=== PATIENT | female | born 1975 | race Caucasian/White ===

== ENCOUNTER 2024-09-09 00:33 | Inpatient (IN) | payer OTHER, SELFPAY ==
[2024-09-09 00:15] VITALS: BP 132/81; PULSE 63; RESP 16; TEMP 36.4; O2SAT 95
[2024-09-09 02:38] VITALS: BMI 34.1
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
[2024-09-09 07:37] VITALS: BP 133/64; PULSE 66; RESP 16; TEMP 36.4; O2SAT 92
[2024-09-09 08:47] LABS: Albumin Level 3.9 g/dL (3.5-5.0); Anion Gap 14 (12-20); Aspartate Amino Transferase 59 U/L (5-31); Bilirubin Total 0.3 mg/dL (0.0-1.0); Blood Urea Nitrogen 22 mg/dL (9-16); Calcium 9.3 mg/dL (8.4-10.2); Carbon Dioxide 27 mmol/L (22-29); Chloride 102 mmol/L (96-108); Creatinine Clr Calc Pharmacy 103.4; Estimated Glomerular Filt Rate > 60; Glucose Random 105 mg/dL (60-115); Potassium 4.5 mmol/L (3.3-5.1); Sodium 138 mmol/L (135-145); Total Protein 7.4 g/dL (6.5-8.0)
[2024-09-09 08:53] LABS: Alanine Aminotransferase 47 U/L (0-31); Alkaline Phosphatase 82 U/L (39-117)
--- NOTE | 2024-09-09 09:20 | HO.PSYADMNOT ---
[facility] Date of Service: 09/09/24 Chief Complaint: Adjustment Disorder with depressed mood Sources of Information: patient interviewed, chart reviewed and crisis/core team assessment reviewed HPI Subjective Notes: Neal Warning and Conditional Voluntary Narrative: Patient is a 49-year-old female with history of bipolar disorder, PTSD, cocaine use disorder, alcohol use disorder and opiate use disorder, who self presented to ER due to suicidal ideation secondary to hip pain. Per crisis report, patient reports hip pain for the past week that is worsening and states she does not want to live anymore because of this. She reports suicidal ideation with plan to overdose or jump off a bridge. She reports 1 previous suicide attempt via overdose in 2006 after her mother . Patient reports difficulty falling asleep due to the pain. Does not having psychiatric providers at this time. She receives her medications through her PCP. Patient reports using cocaine a few times a week; drinking 1 pint of alcohol a day. Last Sublocade injection was 08/17/2024. Patient has a orthopedics follow-up appointment on 09/14/2004. Patient ambulates with walker; severe osteoarthritis of left hip. During admission assessment, patient tearful due to pain in hip. Patient reports feeling depressed ; patient stated, I want to kill myself because of the pain in my hip . Patient declined to complete full admission assessment due to wanting to go lay down in bed. Patient denies HI/VH/AH. Past Psychiatric History: Patient reports history of multiple inpatient psychiatric hospitalizations. History of suicide attempt via overdose in 2006 after her mother , which required life support. Medical Evaluation Reviewed: Yes [facility] Medical History (Updated 09/09/24 @ 16:55 by Martina Villa NP) Bipolar disorder GERD (gastroesophageal reflux disease) COPD (chronic obstructive pulmonary disease) Chronic left hip pain Osteoarthritis Peripheral neuropathy Polysubstance use disorder HTN (hypertension) Family History: Unknown Social History: Homeless. Disability. Substance History: Patient reports using alcohol, cocaine, opiates. Trauma History: Yes Diagnostics Vital Signs (24Hr): Vital Signs - 24 hr 09/09/24 00:15 09/09/24 07:37 Temperature 97.6 F 97.6 F Pulse Rate 63 66 Respiratory Rate 16 16 Blood Pressure 132/81 133/64 Pulse Oximetry 95 92 Oxygen Delivery Method Room Air Room Air BMI result Body Mass Index 34.1 Labs 09/09/24 08:17 Labs: Laboratory Results - last 48 hr 09/09/24 08:17 Sodium 138 Potassium 4.5 Chloride 102 Carbon Dioxide 27 Anion Gap 14 BUN 22 H Creatinine 0.73 Estim Creat Clear Calc 103.4 Estimated GFR > 60 Random Glucose 105 Calcium 9.3 Total Bilirubin 0.3 AST 59 H ALT 47 H Alkaline Phosphatase 82 Total Protein 7.4 Albumin 3.9 Meds/Allergies Meds Home Medications ?Medication ?Instructions ?Recorded ?Confirmed ?Type amlodipine 10 mg tablet 10 mg PO DAILY 09/09/24 09/09/24 History buprenorphine 100 mg/0.5 mL mg subcut 09/09/24 History solution,exten.rel.subcutaneous syringe (Sublocade) cyclobenzaprine 10 mg tablet 10 mg PO TID 09/09/24 09/09/24 History fluoxetine 20 mg capsule 20 mg PO DAILY 09/09/24 09/09/24 History gabapentin 300 mg capsule 900 mg PO TID 09/09/24 09/09/24 History hydrochlorothiazide 12.5 mg tablet 12.5 mg PO DAILY 09/09/24 09/09/24 History ibuprofen 600 mg tablet 600 mg PO Q6H PRN Pain (Scale 09/09/24 09/09/24 History Score 4-6) lorazepam 0.5 mg tablet 0.5 mg PO DAILY PRN Anxiety 09/09/24 09/09/24 History olanzapine 5 mg tablet 5 mg PO BEDTIME 09/09/24 09/09/24 History oxcarbazepine 300 mg tablet 300 mg PO BID 09/09/24 09/09/24 History oxycodone 5 mg tablet 5 mg PO TID PRN Pain, Severe 09/09/24 09/09/24 History pantoprazole 40 mg tablet,delayed 40 mg PO DAILY 09/09/24 09/09/24 History release pantoprazole 40 mg tablet,delayed 40 mg PO DAILY 09/09/24 09/09/24 History release tiotropium bromide 18 mcg capsule 1 cap inhalation DAILY 09/09/24 09/09/24 History with inhalation device (Spiriva with HandiHaler) trazodone 100 mg tablet 100 mg PO BEDTIME 09/09/24 09/09/24 History venlafaxine 75 mg capsule,extended 75 mg PO DAILY 09/09/24 09/09/24 History release 24 hr Allergies Allergies Allergy/AdvReac Type Severity Reaction Status Date / Time No Known Allergies Allergy Verified 09/09/24 03:06 Mental Status Exam Mental Status Exam Patient Appearance: Appropriate Patient Orientation: Person, Place, Time and Situation Level of Consciousness: Awake and Alert Patient Behavior: Anxious, Good Eye Contact and Crying Mood Description: Anxious Affect Description: Constricted Ability to Follow Directions: Good Speech Pattern: Clear Hallucinations: None Thought Process: Intact Thought Content: positive for Intact Assessment & Plan Assessment & Plan (1) Bipolar disorder: Status: Acute Code(s): F31.9 - Bipolar disorder, unspecified (2) PTSD (post-traumatic stress disorder): Status: Acute Code(s): F43.10 - Post-traumatic stress disorder, unspecified (3) Cocaine use disorder: Status: Acute Code(s): F14.10 - Cocaine abuse, uncomplicated (4) Opioid use disorder: Status: Acute Code(s): F11.90 - Opioid use, unspecified, uncomplicated (5) Alcohol use disorder: Status: Acute Code(s): F10.90 - Alcohol use, unspecified, uncomplicated (6) Chronic left hip pain: Status: Acute Code(s): M25.552 - Pain in left hip; G89.29 - Other chronic pain Plan Patient is a 49-year-old female with history of bipolar disorder, PTSD, cocaine use disorder, alcohol use disorder and opiate use disorder, who self presented to ER due to suicidal ideation secondary to hip pain. Plan: CV 5 minute safety checks Continue home medications Encourage groups Referral to outpatient psychiatric providers Consult to addiction medicine Build rapport Discharge planning Patient educated on: diagnosis and medication risk/benefits Reason for continued inpatient stay Substantial Risk for: harm to self and med/psych decompensation Statement Statement: I have reviewed the history and physical and performed a pertinent examination on my patient. No changes have occurred unless specified. If the History and Physical was not performed prior to admission, the Hospitalist's service will be consulted for completing the admission physical. Time Spent With Patient Time: Total time managing care of this patient today _30___ minutes.
[2024-09-09 12:21] VITALS: BP 162/82; PULSE 73; RESP 18; TEMP 36.9; O2SAT 95
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
[2024-09-09] MEDS: amLODIPine Besylate 10 MG TABLET PO (12:49)
[2024-09-09] MEDS: Gabapentin 300 MG CAPSULE 900 MG PO ×3 (12:50→20:03)
[2024-09-09] MEDS: Cyclobenzaprine HCl 10 MG TABLET PO ×3 (12:50→20:04)
[2024-09-09] MEDS: hydroCHLOROthiazide 12.5 MG TABLET PO (12:50)
[2024-09-09] MEDS: Venlafaxine HCl ER 75 MG CAP.ER.24H PO (12:50)
[2024-09-09] MEDS: OXcarbazepine 300 MG TABLET PO ×2 (12:50→20:05)
[2024-09-09] MEDS: oxyCODONE HCl Immed Release 5 MG TABLET PO ×2 (12:51→20:05)
[2024-09-09] MEDS: LORazepam 0.5 MG TABLET PO ×2 (13:13→21:59)
[2024-09-09 19:53] VITALS: BP 122/76; PULSE 100; RESP 16; TEMP 36.8; O2SAT 94
[2024-09-09] MEDS: OLANZapine 5 MG TABLET PO (20:06)
[2024-09-09] MEDS: traZODone HCL 100 MG TABLET PO (20:07)
[2024-09-09] MEDS: cloNIDine HCL 0.1 MG TABLET PO (20:07)
[2024-09-10] MEDS: Omeprazole 20 MG CAPSULE.DR PO (06:38)
[2024-09-10 07:50] VITALS: BP 127/69; PULSE 72; RESP 14; TEMP 36.6; O2SAT 94
[2024-09-10] MEDS: oxyCODONE HCl Immed Release 5 MG TABLET PO ×3 (08:32→22:38)
[2024-09-10] MEDS: hydroCHLOROthiazide 12.5 MG TABLET PO (08:32)
[2024-09-10] MEDS: amLODIPine Besylate 10 MG TABLET PO (08:33)
[2024-09-10] MEDS: OXcarbazepine 300 MG TABLET PO ×2 (08:34→21:07)
[2024-09-10] MEDS: Venlafaxine HCl ER 75 MG CAP.ER.24H PO (08:34)
[2024-09-10] MEDS: Cyclobenzaprine HCl 10 MG TABLET PO ×3 (08:34→21:06)
[2024-09-10] MEDS: Gabapentin 300 MG CAPSULE 900 MG PO ×3 (08:34→21:07)
[2024-09-10] MEDS: LORazepam 0.5 MG TABLET PO ×2 (08:35→20:43)
[2024-09-10] MEDS: Lidocaine 4 % Patch ADH..PATCH 1 PATCH TRANSDERMA (08:36)
[2024-09-10] MEDS: Albuterol Sulfate 90 MCG 8 GM INHALER 1 PUFF INHALE (08:44)
[2024-09-10] MEDS: cloNIDine HCL 0.1 MG TABLET PO (08:44)
--- NOTE | 2024-09-10 10:17 | HO.PSYCHPN ---
Subjective Subjective Date of Service: 09/10/24 Reason For Visit: Adjustment Disorder with depressed mood Interim History: overall patient reports significant hip pain, which is chronic in nature. Hopeful for surgery soon and making an upcoming consult appointment. Does have a rash on her right hip. Sleep is poor in the context of pain. Feeling down, irritable and anxious. Denies SI. No HI or psychosis. We discussed medications and clonidine dose will be increased. Will also order hydrocortisone cream and senna. Medication Compliance: Yes Side effects from medications: No Attending Groups: Yes Review of Systems Acute medical concerns: No Review of Systems Review of Systems Chronic left hip pain. Hip rash noted and no evidence of cellulitis Mental Status Exam Mental Status Exam Patient Appearance: Appropriate Patient Orientation: Person, Place, Time and Situation Level of Consciousness: Awake and Alert Patient Behavior: Anxious, Good Eye Contact and Crying Mood Description: Anxious Affect Description: Constricted Ability to Follow Directions: Good Speech Pattern: Clear Diagnostics Vital Signs (24Hr): Vital Signs - 24 hr 09/09/24 12:21 09/09/24 19:53 09/10/24 07:50 Temperature 98.5 F 98.2 F 97.9 F Pulse Rate 73 100 72 Respiratory Rate 18 16 14 Blood Pressure 162/82 H 122/76 127/69 Pulse Oximetry 95 94 94 Oxygen Delivery Method Room Air Room Air Room Air BMI result Body Mass Index 34.1 Labs 09/09/24 08:17 Labs: Laboratory Results - last 48 hr 09/09/24 08:17 Sodium 138 Potassium 4.5 Chloride 102 Carbon Dioxide 27 Anion Gap 14 BUN 22 H Creatinine 0.73 Estim Creat Clear Calc 103.4 Estimated GFR > 60 Random Glucose 105 Calcium 9.3 Total Bilirubin 0.3 AST 59 H ALT 47 H Alkaline Phosphatase 82 Total Protein 7.4 Albumin 3.9 Medications Medications Current Medications Acetaminophen (Acetaminophen 325 Mg Tablet) 650 mg PO Q6H PRN PRN Reason: Headache/Pain Mild Scale (1-3) Al Hydroxide/Mg Hydroxide (Magnesium Hydrox/Alum Hydrox 30 Ml Oral.Susp) 30 ml PO Q6H PRN PRN Reason: Heartburn/Nausea Albuterol Sulfate (Albuterol Sulfate 90 Mcg 8 Gm Inhaler) 1 puff INHALE RQ4H PRN PRN Reason: Shortness of Breath Last Admin: 09/10/24 08:44 Dose: 1 puff Amlodipine Besylate (Amlodipine Besylate 10 Mg Tablet) 10 mg PO DAILY REPLACED BY [facility]; Protocol Last Admin: 09/10/24 08:33 Dose: 10 mg Clonidine HCl (Clonidine Hcl 0.1 Mg Tablet) 0.1 mg PO BID PRN; Protocol PRN Reason: Anxiety Last Admin: 09/10/24 08:44 Dose: 0.1 mg Cyclobenzaprine HCl (Cyclobenzaprine Hcl 10 Mg Tablet) 10 mg PO TID REPLACED BY [facility] Last Admin: 09/10/24 08:34 Dose: 10 mg Gabapentin (Gabapentin 300 Mg Capsule) 900 mg PO TID REPLACED BY [facility] Last Admin: 09/10/24 08:34 Dose: 900 mg Hydrochlorothiazide (Hydrochlorothiazide 12.5 Mg Tablet) 12.5 mg PO DAILY REPLACED BY [facility]; Protocol Last Admin: 09/10/24 08:32 Dose: 12.5 mg Hydroxyzine HCl (Hydroxyzine Hcl 25 Mg Tablet) 25 mg PO Q6H PRN PRN Reason: Anxiety Ibuprofen (Ibuprofen 600 Mg Tablet) 600 mg PO Q6H PRN PRN Reason: Pain (Scale Score 4-6) Lidocaine (Lidocaine 4 % Patch Adh..Patch) 1 patch TRANSDERMA DAILY REPLACED BY [facility]; Protocol Last Admin: 09/10/24 08:36 Dose: 1 patch Lorazepam (Lorazepam 0.5 Mg Tablet) 0.5 mg PO BID PRN PRN Reason: Anxiety Last Admin: 09/10/24 08:35 Dose: 0.5 mg Magnesium Hydroxide (Milk Of Magnesia 30 Ml Oral.Susp) 30 ml PO DAILY PRN PRN Reason: Constipation Nicotine (Nicotine 21 Mg Patch.Td24) 21 mg TRANSDERMA DAILY PRN PRN Reason: nicotine cravings Nicotine Polacrilex (Nicotine Polacrilex 2 Mg Gum) 2 mg BUCCAL Q2H PRN PRN Reason: Nicotine Cravings Olanzapine (Olanzapine 5 Mg Tablet) 5 mg PO BEDTIME REPLACED BY [facility] Last Admin: 09/09/24 20:06 Dose: 5 mg Omeprazole (Omeprazole 20 Mg Capsule.Dr) 20 mg PO DAILY@0630 REPLACED BY [facility] Last Admin: 09/10/24 06:38 Dose: 20 mg Oxcarbazepine (Oxcarbazepine 300 Mg Tablet) 300 mg PO BID REPLACED BY [facility] Last Admin: 09/10/24 08:34 Dose: 300 mg Oxycodone HCl (Oxycodone Hcl Immed Release 5 Mg Tablet) 5 mg PO TID PRN PRN Reason: Pain, Severe Last Admin: 09/10/24 08:32 Dose: 5 mg Tiotropium [place] (Tiotropium [place] 2.5 Mcg 1 Puff/2.5 Mcg Mist.Inhal) 2 puff INHALE RDAILY REPLACED BY [facility] Last Admin: 09/10/24 08:36 Dose: Not Given Trazodone HCl (Trazodone Hcl 100 Mg Tablet) 100 mg PO BEDTIME REPLACED BY [facility] Last Admin: 09/09/24 20:07 Dose: 100 mg Venlafaxine HCl (Venlafaxine Hcl Er 75 Mg Cap.Er.24h) 75 mg PO DAILY REPLACED BY [facility] Last Admin: 09/10/24 08:34 Dose: 75 mg Allergies Allergies Allergy/AdvReac Type Severity Reaction Status Date / Time No Known Allergies Allergy Verified 09/09/24 03:06 Assessment & Plan Assessment & Plan (1) Bipolar disorder: Status: Acute Code(s): F31.9 - Bipolar disorder, unspecified (2) PTSD (post-traumatic stress disorder): Status: Acute Code(s): F43.10 - Post-traumatic stress disorder, unspecified (3) Cocaine use disorder: Status: Acute Code(s): F14.10 - Cocaine abuse, uncomplicated (4) Opioid use disorder: Status: Acute Code(s): F11.90 - Opioid use, unspecified, uncomplicated (5) Alcohol use disorder: Status: Acute Code(s): F10.90 - Alcohol use, unspecified, uncomplicated (6) Chronic left hip pain: Status: Acute Code(s): M25.552 - Pain in left hip; G89.29 - Other chronic pain Plan Patient is a 49-year-old female with history of bipolar disorder, PTSD, cocaine use disorder, alcohol use disorder and opiate use disorder, who self presented to ER due to suicidal ideation secondary to hip pain. Plan: CV 5 minute safety checks Continue home medications Encourage groups Referral to outpatient psychiatric providers Consult to addiction medicine Build rapport Discharge planning 09/10/2024: Increase clonidine to 0.2 mg twice daily, and hydrocortisone cream for hip rash and also senna for constipation. Reason for continued inpatient stay Substantial Risk for: inability to function Time Spent With Patient Time: Total time managing care of this patient today ____ minutes.
[2024-09-10] MEDS: Ibuprofen 600 MG TABLET PO ×2 (10:52→22:37)
[2024-09-10] MEDS: hydrOXYzine HCL 25 MG TABLET PO ×2 (11:53→22:37)
[2024-09-10 12:34] VITALS: BP 153/92; PULSE 110; TEMP 36.3; O2SAT 95
[2024-09-10] MEDS: cloNIDine HCL 0.2 MG TABLET PO ×2 (12:37→22:37)
[2024-09-10 20:00] VITALS: BP 127/69; PULSE 72; RESP 16; TEMP 36.6; O2SAT 94
[2024-09-10] MEDS: Sennosides 8.6 MG TABLET 17.2 MG PO (21:06)
[2024-09-10] MEDS: OLANZapine 5 MG TABLET PO (21:07)
[2024-09-10] MEDS: traZODone HCL 100 MG TABLET PO (21:08)
[2024-09-10] MEDS: Hydrocortisone 1 % Cream 28.35 GM TUBE 1 APPL TOPICAL (22:37)
[2024-09-11] MEDS: Omeprazole 20 MG CAPSULE.DR PO (06:32)
[2024-09-11 08:30] VITALS: BP 131/74; PULSE 65; RESP 16; TEMP 36.3; O2SAT 94
[2024-09-11] MEDS: hydroCHLOROthiazide 12.5 MG TABLET PO (09:19)
[2024-09-11] MEDS: oxyCODONE HCl Immed Release 5 MG TABLET PO ×3 (09:20→21:09)
[2024-09-11] MEDS: Gabapentin 300 MG CAPSULE 900 MG PO ×3 (09:20→20:18)
[2024-09-11] MEDS: Venlafaxine HCl ER 75 MG CAP.ER.24H PO (09:20)
[2024-09-11] MEDS: amLODIPine Besylate 10 MG TABLET PO (09:21)
[2024-09-11] MEDS: OXcarbazepine 300 MG TABLET PO ×2 (09:21→20:20)
[2024-09-11] MEDS: LORazepam 0.5 MG TABLET PO ×2 (09:21→20:31)
[2024-09-11] MEDS: Cyclobenzaprine HCl 10 MG TABLET PO ×3 (09:21→20:18)
[2024-09-11] MEDS: Lidocaine 4 % Patch ADH..PATCH 1 PATCH TRANSDERMA (09:23)
--- NOTE | 2024-09-11 10:26 | P.PNPSI_ITS ---
Subjective Subjective Date of Service: 09/11/24 Reason For Visit: Adjustment Disorder with depressed mood Medical Problems Affecting Mental Status: No Interim History: Overall patient reports nausea and feels it is similar to withdrawals. Feeling down, irritable and anxious. Denies SI. No HI or psychosis. Discussed increasing clonidine frequency and feels this could be helpful. Rash less itchy with cream. Sleep is poor in the context of pain. Medication Compliance: Yes Side effects from medications: No Attending Groups: Intermittent Review of Systems Acute medical concerns: No Review of Systems Review of Systems nothing acute Mental Status Exam Mental Status Exam Patient Appearance: Appropriate Patient Orientation: Person, Place, Time and Situation Level of Consciousness: Awake and Alert Patient Behavior: Anxious and Good Eye Contact Mood Description: Anxious Affect Description: Constricted Ability to Follow Directions: Good Speech Pattern: Clear Diagnostics Vital Signs (24Hr): Vital Signs - 24 hr 09/10/24 12:34 09/10/24 20:00 09/11/24 08:30 Temperature 97.4 F 97.9 F 97.4 F Pulse Rate 110 H 72 65 Respiratory Rate 16 16 Blood Pressure 153/92 H 127/69 131/74 Pulse Oximetry 95 94 94 Oxygen Delivery Method Room Air Room Air Room Air BMI result Body Mass Index 34.1 Labs 09/09/24 08:17 Medications Medications Current Medications Acetaminophen (Acetaminophen 325 Mg Tablet) 650 mg PO Q6H PRN PRN Reason: Headache/Pain Mild Scale (1-3) Al Hydroxide/Mg Hydroxide (Magnesium Hydrox/Alum Hydrox 30 Ml Oral.Susp) 30 ml PO Q6H PRN PRN Reason: Heartburn/Nausea Albuterol Sulfate (Albuterol Sulfate 90 Mcg 8 Gm Inhaler) 1 puff INHALE RQ4H PRN PRN Reason: Shortness of Breath Last Admin: 09/10/24 08:44 Dose: 1 puff Amlodipine Besylate (Amlodipine Besylate 10 Mg Tablet) 10 mg PO DAILY [facility]; Protocol Last Admin: 09/11/24 09:21 Dose: 10 mg Clonidine HCl (Clonidine Hcl 0.2 Mg Tablet) 0.2 mg PO BID PRN; Protocol PRN Reason: Anxiety Last Admin: 09/10/24 22:37 Dose: 0.2 mg Cyclobenzaprine HCl (Cyclobenzaprine Hcl 10 Mg Tablet) 10 mg PO TID [facility] Last Admin: 09/11/24 09:21 Dose: 10 mg Gabapentin (Gabapentin 300 Mg Capsule) 900 mg PO TID [facility] Last Admin: 09/11/24 09:20 Dose: 900 mg Hydrochlorothiazide (Hydrochlorothiazide 12.5 Mg Tablet) 12.5 mg PO DAILY [facility]; Protocol Last Admin: 09/11/24 09:19 Dose: 12.5 mg Hydrocortisone (Hydrocortisone 1 % Cream 28.35 Gm Tube) 1 appl TOPICAL BID [facility]; Protocol Last Admin: 09/11/24 09:22 Dose: Not Given Hydroxyzine HCl (Hydroxyzine Hcl 25 Mg Tablet) 25 mg PO Q6H PRN PRN Reason: Anxiety Last Admin: 09/10/24 22:37 Dose: 25 mg Ibuprofen (Ibuprofen 600 Mg Tablet) 600 mg PO Q6H PRN PRN Reason: Pain (Scale Score 4-6) Last Admin: 09/10/24 22:37 Dose: 600 mg Lidocaine (Lidocaine 4 % Patch Adh..Patch) 1 patch TRANSDERMA DAILY [facility]; Protocol Last Admin: 09/11/24 09:23 Dose: 1 patch Lorazepam (Lorazepam 0.5 Mg Tablet) 0.5 mg PO BID PRN PRN Reason: Anxiety Last Admin: 09/11/24 09:21 Dose: 0.5 mg Magnesium Hydroxide (Milk Of Magnesia 30 Ml Oral.Susp) 30 ml PO DAILY PRN PRN Reason: Constipation Nicotine (Nicotine 21 Mg Patch.Td24) 21 mg TRANSDERMA DAILY PRN PRN Reason: nicotine cravings Nicotine Polacrilex (Nicotine Polacrilex 2 Mg Gum) 2 mg BUCCAL Q2H PRN PRN Reason: Nicotine Cravings Olanzapine (Olanzapine 5 Mg Tablet) 5 mg PO BEDTIME [facility] Last Admin: 09/10/24 21:07 Dose: 5 mg Omeprazole (Omeprazole 20 Mg Capsule.Dr) 20 mg PO DAILY@0630 [facility] Last Admin: 09/11/24 06:32 Dose: 20 mg Ondansetron HCl (Ondansetron Odt 8 Mg Tab.Rapdis) 8 mg TRANSLINGU Q8H PRN PRN Reason: Nausea and Vomiting Oxcarbazepine (Oxcarbazepine 300 Mg Tablet) 300 mg PO BID [facility] Last Admin: 09/11/24 09:21 Dose: 300 mg Oxycodone HCl (Oxycodone Hcl Immed Release 5 Mg Tablet) 5 mg PO TID PRN PRN Reason: Pain, Severe Last Admin: 09/11/24 09:20 Dose: 5 mg Senna (Sennosides 8.6 Mg Tablet) 17.2 mg PO BEDTIME [facility] Last Admin: 09/10/24 21:06 Dose: 17.2 mg Tiotropium [place] (Tiotropium [place] 2.5 Mcg 1 Puff/2.5 Mcg Mist.Inhal) 2 puff INHALE RDAILY [facility] Last Admin: 09/11/24 09:22 Dose: Not Given Trazodone HCl (Trazodone Hcl 100 Mg Tablet) 100 mg PO BEDTIME [facility] Last Admin: 09/10/24 21:08 Dose: 100 mg Venlafaxine HCl (Venlafaxine Hcl Er 75 Mg Cap.Er.24h) 75 mg PO DAILY [facility] Last Admin: 09/11/24 09:20 Dose: 75 mg Allergies Allergies Allergy/AdvReac Type Severity Reaction Status Date / Time No Known Allergies Allergy Verified 09/09/24 03:06 Assessment & Plan Assessment & Plan (1) Bipolar disorder: Status: Acute Code(s): F31.9 - Bipolar disorder, unspecified (2) PTSD (post-traumatic stress disorder): Status: Acute Code(s): F43.10 - Post-traumatic stress disorder, unspecified (3) Cocaine use disorder: Status: Acute Code(s): F14.10 - Cocaine abuse, uncomplicated (4) Opioid use disorder: Status: Acute Code(s): F11.90 - Opioid use, unspecified, uncomplicated (5) Alcohol use disorder: Status: Acute Code(s): F10.90 - Alcohol use, unspecified, uncomplicated (6) Chronic left hip pain: Status: Acute Code(s): M25.552 - Pain in left hip; G89.29 - Other chronic pain Plan Patient is a 49-year-old female with history of bipolar disorder, PTSD, cocaine use disorder, alcohol use disorder and opiate use disorder, who self presented to ER due to suicidal ideation secondary to hip pain. Plan: CV 5 minute safety checks Continue home medications Encourage groups Referral to outpatient psychiatric providers Consult to addiction medicine Build rapport Discharge planning 09/10/2024: Increase clonidine to 0.2 mg twice daily, and hydrocortisone cream for hip rash and also senna for constipation. 09/11: adjust clonidine to three times daily Reason for continued inpatient stay Substantial Risk for: harm to self Time Spent With Patient Time: Total time managing care of this patient today ____ minutes.
[2024-09-11 11:10] VITALS: BP 182/89
[2024-09-11] MEDS: cloNIDine HCL 0.2 MG TABLET PO ×3 (11:10→20:20)
[2024-09-11] MEDS: Ibuprofen 600 MG TABLET PO ×2 (11:10→20:19)
[2024-09-11 11:15] VITALS: BP 182/89; PULSE 110; O2SAT 97
--- NOTE | 2024-09-11 12:52 | MHC.RECOVRN ---
T/W attempted to meet with pt in 323-2 for [facility] consult/AUDIT C. Pt unable to focus and participate in the meeting due to focus on hip pain/surgery. She requested meeting on another day. Report to ACS nurse
[2024-09-11 15:41] VITALS: BP 106/74; PULSE 78; RESP 16
[2024-09-11 20:14] VITALS: BP 128/77; PULSE 87; RESP 18; TEMP 36.4; O2SAT 96
[2024-09-11] MEDS: Sennosides 8.6 MG TABLET 17.2 MG PO (20:18)
[2024-09-11] MEDS: traZODone HCL 100 MG TABLET PO (20:19)
[2024-09-11] MEDS: OLANZapine 5 MG TABLET PO (20:20)
[2024-09-11] MEDS: Hydrocortisone 1 % Cream 28.35 GM TUBE 1 APPL TOPICAL (21:09)
[2024-09-12] MEDS: Omeprazole 20 MG CAPSULE.DR PO (06:37)
[2024-09-12 08:00] VITALS: BP 115/57; PULSE 66; RESP 14; TEMP 36.4; O2SAT 95
[2024-09-12] MEDS: Acetaminophen 325 MG TABLET 650 MG PO ×2 (08:52→15:15)
[2024-09-12] MEDS: Gabapentin 300 MG CAPSULE 900 MG PO ×3 (08:52→20:04)
[2024-09-12] MEDS: LORazepam 0.5 MG TABLET PO ×2 (08:53→19:06)
[2024-09-12] MEDS: hydroCHLOROthiazide 12.5 MG TABLET PO (08:53)
[2024-09-12] MEDS: amLODIPine Besylate 10 MG TABLET PO (08:53)
[2024-09-12] MEDS: OXcarbazepine 300 MG TABLET PO ×2 (08:53→20:05)
[2024-09-12] MEDS: Cyclobenzaprine HCl 10 MG TABLET PO ×3 (08:54→20:05)
[2024-09-12] MEDS: hydrOXYzine HCL 25 MG TABLET PO ×2 (08:54→19:06)
[2024-09-12] MEDS: Venlafaxine HCl ER 75 MG CAP.ER.24H PO (08:54)
[2024-09-12] MEDS: oxyCODONE HCl Immed Release 5 MG TABLET PO ×3 (09:13→19:05)
--- NOTE | 2024-09-12 09:23 | P.PNPSI_ITS ---
Subjective Subjective Date of Service: 09/12/24 Reason For Visit: Adjustment Disorder with depressed mood Subjective Notes: Conditional Voluntary Interim History: Active on unit, social with peers. attending groups. future oriented. focused on discharge. Patient reports feeling good and ready to go tomorrow to see my doctors . Patient reports she is hopeful about getting surgery for her hip. Pt reports she does not need scripts sent to her pharmacy since she plans on seeing her outpatient providers on 09/13/24 and 09/14/24. denies SI/HI/VH/AH. Medication Compliance: Yes Side effects from medications: No Attending Groups: Yes Review of Systems Constitutional: Reports as per HPI Eyes: Reports as per HPI Reports as per HPI Cardiovascular: Reports as per HPI Respiratory: Reports as per HPI Gastrointestinal: Reports as per HPI Genitourinary: Reports as per HPI Musculoskeletal: Reports as per HPI Skin/Breast: Reports as per HPI Reports as per HPI Psychiatric: Reports as per HPI Endocrine: Reports as per HPI Hematologic/Lymphatic: Reports as per HPI Allergic/Immunologic: Reports as per HPI Mental Status Exam Mental Status Exam Narrative: Pt is alert and oriented; behavior is cooperative and calm; dressed in casual attire; mood is described as good ; eye contact appropriate; Speech is normal rate, volume and not pressured; thought process is organized and goal directed; Thought content is on tx; denies SI/HI/VH/AH. Diagnostics Vital Signs (24Hr): Vital Signs - 24 hr 09/11/24 11:10 09/11/24 11:15 09/11/24 15:41 Temperature Pulse Rate 110 H 78 Respiratory Rate 16 Blood Pressure 182/89 H 182/89 H 106/74 Pulse Oximetry 97 Oxygen Delivery Method Room Air 09/11/24 20:14 09/12/24 08:00 Temperature 97.5 F 97.5 F Pulse Rate 87 66 Respiratory Rate 18 14 Blood Pressure 128/77 115/57 L Pulse Oximetry 96 95 Oxygen Delivery Method Room Air Room Air BMI result Body Mass Index 34.1 Labs 09/09/24 08:17 Medications Medications Current Medications Acetaminophen (Acetaminophen 325 Mg Tablet) 650 mg PO Q6H PRN PRN Reason: Headache/Pain Mild Scale (1-3) Last Admin: 09/12/24 08:52 Dose: 650 mg Al Hydroxide/Mg Hydroxide (Magnesium Hydrox/Alum Hydrox 30 Ml Oral.Susp) 30 ml PO Q6H PRN PRN Reason: Heartburn/Nausea Albuterol Sulfate (Albuterol Sulfate 90 Mcg 8 Gm Inhaler) 1 puff INHALE RQ4H PRN PRN Reason: Shortness of Breath Last Admin: 09/10/24 08:44 Dose: 1 puff Amlodipine Besylate (Amlodipine Besylate 10 Mg Tablet) 10 mg PO DAILY [facility]; Protocol Last Admin: 09/12/24 08:53 Dose: 10 mg Clonidine HCl (Clonidine Hcl 0.2 Mg Tablet) 0.2 mg PO TID [facility]; Protocol Last Admin: 09/11/24 20:20 Dose: 0.2 mg Cyclobenzaprine HCl (Cyclobenzaprine Hcl 10 Mg Tablet) 10 mg PO TID [facility] Last Admin: 09/12/24 08:54 Dose: 10 mg Gabapentin (Gabapentin 300 Mg Capsule) 900 mg PO TID [facility] Last Admin: 09/12/24 08:52 Dose: 900 mg Hydrochlorothiazide (Hydrochlorothiazide 12.5 Mg Tablet) 12.5 mg PO DAILY [facility]; Protocol Last Admin: 09/12/24 08:53 Dose: 12.5 mg Hydrocortisone (Hydrocortisone 1 % Cream 28.35 Gm Tube) 1 appl TOPICAL BID [facility]; Protocol Last Admin: 09/12/24 09:18 Dose: Not Given Hydroxyzine HCl (Hydroxyzine Hcl 25 Mg Tablet) 25 mg PO Q6H PRN PRN Reason: Anxiety Last Admin: 09/12/24 08:54 Dose: 25 mg Ibuprofen (Ibuprofen 600 Mg Tablet) 600 mg PO Q6H PRN PRN Reason: Pain (Scale Score 4-6) Last Admin: 09/11/24 20:19 Dose: 600 mg Lidocaine (Lidocaine 4 % Patch Adh..Patch) 1 patch TRANSDERMA DAILY [facility]; Protocol Last Admin: 09/12/24 09:18 Dose: Not Given Lorazepam (Lorazepam 0.5 Mg Tablet) 0.5 mg PO BID PRN PRN Reason: Anxiety Last Admin: 09/12/24 08:53 Dose: 0.5 mg Magnesium Hydroxide (Milk Of Magnesia 30 Ml Oral.Susp) 30 ml PO DAILY PRN PRN Reason: Constipation Nicotine (Nicotine 21 Mg Patch.Td24) 21 mg TRANSDERMA DAILY PRN PRN Reason: nicotine cravings Nicotine Polacrilex (Nicotine Polacrilex 2 Mg Gum) 2 mg BUCCAL Q2H PRN PRN Reason: Nicotine Cravings Olanzapine (Olanzapine 5 Mg Tablet) 5 mg PO BEDTIME [facility] Last Admin: 09/11/24 20:20 Dose: 5 mg Omeprazole (Omeprazole 20 Mg Capsule.Dr) 20 mg PO DAILY@0630 [facility] Last Admin: 09/12/24 06:37 Dose: 20 mg Ondansetron HCl (Ondansetron Odt 8 Mg Tab.Rapdis) 8 mg TRANSLINGU Q8H PRN PRN Reason: Nausea and Vomiting Oxcarbazepine (Oxcarbazepine 300 Mg Tablet) 300 mg PO BID [facility] Last Admin: 09/12/24 08:53 Dose: 300 mg Oxycodone HCl (Oxycodone Hcl Immed Release 5 Mg Tablet) 5 mg PO TID PRN PRN Reason: Pain, Severe Last Admin: 09/12/24 09:13 Dose: 5 mg Senna (Sennosides 8.6 Mg Tablet) 17.2 mg PO BEDTIME [facility] Last Admin: 09/11/24 20:18 Dose: 17.2 mg Tiotropium [place] (Tiotropium [place] 2.5 Mcg 1 Puff/2.5 Mcg Mist.Inhal) 2 puff INHALE RDAILY [facility] Last Admin: 09/12/24 09:16 Dose: Not Given Trazodone HCl (Trazodone Hcl 100 Mg Tablet) 100 mg PO BEDTIME [facility] Last Admin: 09/11/24 20:19 Dose: 100 mg Venlafaxine HCl (Venlafaxine Hcl Er 75 Mg Cap.Er.24h) 75 mg PO DAILY [facility] Last Admin: 09/12/24 08:54 Dose: 75 mg Allergies Allergies Allergy/AdvReac Type Severity Reaction Status Date / Time No Known Allergies Allergy Verified 09/09/24 03:06 Assessment & Plan Assessment & Plan (1) Bipolar disorder: Status: Acute Code(s): F31.9 - Bipolar disorder, unspecified (2) PTSD (post-traumatic stress disorder): Status: Acute Code(s): F43.10 - Post-traumatic stress disorder, unspecified (3) Cocaine use disorder: Status: Acute Code(s): F14.10 - Cocaine abuse, uncomplicated (4) Opioid use disorder: Status: Acute Code(s): F11.90 - Opioid use, unspecified, uncomplicated (5) Alcohol use disorder: Status: Acute Code(s): F10.90 - Alcohol use, unspecified, uncomplicated (6) Chronic left hip pain: Status: Acute Code(s): M25.552 - Pain in left hip; G89.29 - Other chronic pain Plan Patient is a 49-year-old female with history of bipolar disorder, PTSD, cocaine use disorder, alcohol use disorder and opiate use disorder, who self presented to ER due to suicidal ideation secondary to hip pain. Plan: CV 5 minute safety checks Continue home medications Encourage groups Referral to outpatient psychiatric providers Consult to addiction medicine Build rapport Discharge planning 09/10/2024: Increase clonidine to 0.2 mg twice daily, and hydrocortisone cream for hip rash and also senna for constipation. 09/11: adjust clonidine to three times daily 09/12: Active on unit, social with peers. attending groups. future oriented. focused on discharge. Patient reports feeling good and ready to go tomorrow to see my doctors . Patient reports she is hopeful about getting surgery for her hip. Pt reports she does not need scripts sent to her pharmacy since she plans on seeing her outpatient providers on 09/13/24 and 09/14/24. denies SI/HI/VH/AH. Patient educated on: diagnosis and medication risk/benefits Reason for continued inpatient stay Substantial Risk for: stable for discharge Time Spent With Patient Time: Total time managing care of this patient today _20___ minutes.
--- NOTE | 2024-09-12 09:23 | HO.PSYEVENT2 ---
Event Note Date of Service: 09/12/24 Time Spent With Patient Time: Total time managing care of this patient today ____ minutes.
[2024-09-12 10:20] VITALS: BP 138/87; PULSE 80
[2024-09-12] MEDS: cloNIDine HCL 0.2 MG TABLET PO ×3 (10:24→20:05)
[2024-09-12] MEDS: Ibuprofen 600 MG TABLET PO ×2 (10:56→21:39)
[2024-09-12 15:09] VITALS: BP 136/83
[2024-09-12 20:00] VITALS: BP 144/77; PULSE 85; RESP 16; TEMP 37.1; O2SAT 97
[2024-09-12] MEDS: Sennosides 8.6 MG TABLET 17.2 MG PO (20:04)
[2024-09-12] MEDS: OLANZapine 5 MG TABLET PO (20:05)
[2024-09-12] MEDS: traZODone HCL 100 MG TABLET PO (20:05)
[2024-09-13] MEDS: oxyCODONE HCl Immed Release 5 MG TABLET PO ×2 (01:28→08:35)
[2024-09-13] MEDS: Ibuprofen 600 MG TABLET PO (06:59)
[2024-09-13] MEDS: Omeprazole 20 MG CAPSULE.DR PO (07:00)
[2024-09-13 07:56] VITALS: BP 126/63; PULSE 75; RESP 16; TEMP 36.4; O2SAT 96
[2024-09-13] MEDS: Venlafaxine HCl ER 75 MG CAP.ER.24H PO (08:36)
[2024-09-13] MEDS: LORazepam 0.5 MG TABLET PO (08:36)
[2024-09-13] MEDS: Gabapentin 300 MG CAPSULE 900 MG PO (08:36)
[2024-09-13] MEDS: OXcarbazepine 300 MG TABLET PO (08:36)
[2024-09-13] MEDS: cloNIDine HCL 0.2 MG TABLET PO (08:36)
[2024-09-13] MEDS: hydroCHLOROthiazide 12.5 MG TABLET PO (08:36)
[2024-09-13] MEDS: amLODIPine Besylate 10 MG TABLET PO (08:37)
[2024-09-13] MEDS: Cyclobenzaprine HCl 10 MG TABLET PO (08:37)
[2024-09-13] MEDS: Naloxone HCl Nasal TAKE HOME 4 MG SPRAY 8 MG NOSTRILALT (08:39)
[2024-09-13] MEDS: Tiotropium Bromide 2.5 mcg 1 PUFF/2.5 MCG MIST.INHAL 2 PUFF INHALE (08:40)
[2024-09-13] MEDS: Ondansetron ODT 8 MG TAB.RAPDIS TRANSLINGU (08:48)
--- NOTE | 2024-09-13 09:04 | PM.PSYDC ---
DS: Providers Provider Date of Service: 09/13/24 Date of admission: 09/09/24 00:33 Date of discharge: 09/13/24 Primary care physician: Unknown Physician Admitting clinician: Martina Villa Attending physician on admission: Jorge Simons Consults: 09/09/24 00:15 Consult to Hospitalist Routine Comment: Consulting Provider: [facility] Hospitalists Reason For Exam: medical H&P 09/09/24 05:49 Addiction Medicine Routine Consulting Provider: Addiction Covering Reason for consultation: chronic etoh and substance use Attending physician on discharge: Jorge Simons Discharging clinician: Martina Villa DS: Diagnosis Discharge Diagnosis (1) Bipolar disorder: Status: Acute (2) PTSD (post-traumatic stress disorder): Status: Acute (3) Cocaine use disorder: Status: Acute (4) Opioid use disorder: Status: Acute (5) Alcohol use disorder: Status: Acute (6) Chronic left hip pain: Status: Acute DS: Medications Discharge Medications Home Medications: Home Medications ?Medication ?Instructions ?Recorded ?Confirmed amlodipine 10 mg tablet 10 mg PO DAILY 09/09/24 09/09/24 buprenorphine 100 mg/0.5 mL mg subcut 09/09/24 solution,exten.rel.subcutaneous syringe (Sublocade) cyclobenzaprine 10 mg tablet 10 mg PO TID 09/09/24 09/09/24 gabapentin 300 mg capsule 900 mg PO TID 09/09/24 09/09/24 hydrochlorothiazide 12.5 mg tablet 12.5 mg PO DAILY 09/09/24 09/09/24 ibuprofen 600 mg tablet 600 mg PO Q6H PRN Pain (Scale 09/09/24 09/09/24 Score 4-6) lorazepam 0.5 mg tablet 0.5 mg PO DAILY PRN Anxiety 09/09/24 09/09/24 olanzapine 5 mg tablet 5 mg PO BEDTIME 09/09/24 09/09/24 oxcarbazepine 300 mg tablet 300 mg PO BID 09/09/24 09/09/24 oxycodone 5 mg tablet 5 mg PO TID PRN Pain, Severe 09/09/24 09/09/24 pantoprazole 40 mg tablet,delayed 40 mg PO DAILY 09/09/24 09/09/24 release tiotropium bromide 18 mcg capsule 1 cap inhalation DAILY 09/09/24 09/09/24 with inhalation device (Spiriva with HandiHaler) trazodone 100 mg tablet 100 mg PO BEDTIME 09/09/24 09/09/24 venlafaxine 75 mg capsule,extended 75 mg PO DAILY 09/09/24 09/09/24 release 24 hr Previous Rx's ?Medication ?Instructions ?Recorded albuterol sulfate 90 mcg/actuation 1 puff inhalation RQ4H PRN 09/12/24 aerosol inhaler (Ventolin HFA) Shortness Of Breath #0 grams Mental Status Exam Mental Status Exam Narrative: Pt is alert and oriented; behavior is cooperative and calm; dressed in casual attire; mood is described as good ; eye contact appropriate; Speech is normal rate, volume and not pressured; thought process is organized and goal directed; Thought content is on tx; denies SI/HI/VH/AH. Data Data Completed and Pending Completed studies during hospitalization [Text1]: 09/09/24 08:17 Sodium 138 Potassium 4.5 Chloride 102 Carbon Dioxide 27 Anion Gap 14 BUN 22 H Creatinine 0.73 Estim Creat Clear Calc 103.4 Estimated GFR > 60 Random Glucose 105 Calcium 9.3 Total Bilirubin 0.3 AST 59 H ALT 47 H Alkaline Phosphatase 82 Total Protein 7.4 Albumin 3.9 DS: Summary Hospital Course Hospital Course: Patient is a 49-year-old female with history of bipolar disorder, PTSD, cocaine use disorder, alcohol use disorder and opiate use disorder, who self presented to ER due to suicidal ideation secondary to hip pain. Per crisis report, patient reports hip pain for the past week that is worsening and states she does not want to live anymore because of this. She reports suicidal ideation with plan to overdose or jump off a bridge. She reports 1 previous suicide attempt via overdose in 2006 after her mother . Patient reports difficulty falling asleep due to the pain. Does not having psychiatric providers at this time. She receives her medications through her PCP. Patient reports using cocaine a few times a week; drinking 1 pint of alcohol a day. Last Sublocade injection was 08/17/2024. Patient has a orthopedics follow-up appointment on 09/14/2004. Patient ambulates with walker; severe osteoarthritis of left hip. During admission assessment, patient tearful due to pain in hip. Patient reports feeling depressed ; patient stated, I want to kill myself because of the pain in my hip . Patient declined to complete full admission assessment due to wanting to go lay down in bed. Patient denies HI/VH/AH. Plan: CV 5 minute safety checks Continue home medications Encourage groups Referral to outpatient psychiatric providers Consult to addiction medicine Build rapport Discharge planning Increase clonidine to 0.2 mg twice daily, and hydrocortisone cream for hip rash and also senna for constipation. adjust clonidine to three times daily Active on unit, social with peers. attending groups. future oriented. focused on discharge. Patient reports feeling good and ready to go tomorrow to see my doctors . Patient reports she is hopeful about getting surgery for her hip. Pt reports she does not need scripts sent to her pharmacy since she plans on seeing her outpatient providers on 09/13/24 and 09/14/24. denies SI/HI/VH/AH. Patient reports feeling good and looking forward to seeing her provider . denies SI/HI/VH/AH. Pt plans on following up with outpatient providers. Time spent discussing smoking cessation with patient: 3 to 10 minutes Status at Discharge Cognitive/behavioral status at discharge: Patient was interviewed prior to discharge and found to be fully oriented and without SI or HI. Patient has insight and demonstrates good judgment in terms of wanting to pursue treatment. Patient has a safety plan that includes presenting to the closest ER or calling 911 if feeling unsafe. Functional status at discharge: independent ambulation Overall status at discharge: patient is back to baseline Time Spent with Patient Time attestation: Total time managing care of this patient today _20___ minutes. Time spent: Less than 30 minutes Discharge Plan Discharge Anticipated Discharge Date/Time: 09/13/24 10:00 Patient Disposition: Group Home Discharge Diagnosis: Bipolar d/o, PTSD, cocaine use d/o, opioid use d/o, alcohol use d/o Referrals: Dr. Jaramillo [Other] - 09/14/24 (PT1 set up through [facility]. ) Karolina Franco [Other] - 09/13/24 (Tiny states that she will see Dr. Fracno today when she arrives back at the [facility]. ) Discharge Medications: New albuterol sulfate [Ventolin HFA] 90 mcg/actuation Hfa Aerosol Inhaler 1 puff inhalation RQ4H PRN (Reason: Shortness Of Breath) Qty: 0 0RF Continued cyclobenzaprine 10 mg tablet 10 mg PO TID amlodipine 10 mg tablet 10 mg PO DAILY gabapentin 300 mg capsule 900 mg PO TID hydrochlorothiazide 12.5 mg tablet 12.5 mg PO DAILY venlafaxine 75 mg capsule,extended release 24hr 75 mg PO DAILY olanzapine 5 mg tablet 5 mg PO BEDTIME oxcarbazepine 300 mg tablet 300 mg PO BID lorazepam 0.5 mg tablet 0.5 mg PO DAILY PRN (Reason: Anxiety) trazodone 100 mg tablet 100 mg PO BEDTIME pantoprazole 40 mg tablet,delayed release (DR/EC) 40 mg PO DAILY ibuprofen 600 mg tablet 600 mg PO Q6H PRN (Reason: Pain (Scale Score 4-6)) oxycodone 5 mg tablet 5 mg PO TID PRN (Reason: Pain, Severe) tiotropium bromide [Spiriva with HandiHaler] 18 mcg capsule, w/inhalation device 1 cap inhalation DAILY Sublocade 100 mg/0.5 mL solution, extended rel syringe subcut Discontinued fluoxetine 20 mg capsule 20 mg PO DAILY pantoprazole 40 mg tablet,delayed release (DR/EC) 40 mg PO DAILY Discharge Orders: Discharge Order (Routine); Ordered 09/13/24 Ordered By: Martina Villa Diet: Regular diet Activity on Discharge: As tolerated Stand Alone Forms: Patient Portal Discharge page, Community Support Print Language: Greek Care Plan Goals: Maintain mood and safe behaviors Take medications as prescribed Continue to pursue sobriety Practice coping skills Continue with outpatient providers and reach out to them as needed Health Concerns: Mood stability and behaviors Sobriety Plan of Treatment: Follow up with your PCP, psychiatric provider and other outpatient providers regarding above concerns Take medications as prescribed Assessment: Patient was interviewed prior to discharge and found to be fully oriented and without SI or HI. Patient has insight and demonstrates good judgment in terms of wanting to pursue treatment. Patient has a safety plan that includes presenting to the closest ER or calling 911 if feeling unsafe. Discharge Date/Time: 09/13/24 11:38
== END 2024-09-13 11:38 | disposition home or self-care (01) | DRG 753 ==
PROVIDERS: Admitting Provider Social Worker; Responsible Provider Registered Nurse; Visit Provider Psychiatry & Neurology Psychiatry
DX: F31.9 Bipolar disorder, unspecified (principal); R45.851 Suicidal ideations; F10.90 Alcohol use, unspecified, uncomplicated; F11.20 Opioid dependence, uncomplicated; F17.210 Nicotine dependence, cigarettes, uncomplicated; Z71.6 Tobacco abuse counseling; F43.10 Post-traumatic stress disorder, unspecified; F14.10 Cocaine abuse, uncomplicated; Z59.02 Unsheltered homelessness; M25.552 Pain in left hip; G89.29 Other chronic pain; J44.9 Chronic obstructive pulmonary disease, unspecified; I10 Essential (primary) hypertension; G62.9 Polyneuropathy, unspecified; Z79.899 Other long term (current) drug therapy
CPT/HCPCS: 36415; 80053

== ENCOUNTER → 2024-09-09 00:33 | Outpatient (BNV) | payer OTHER, SELFPAY | PROVIDERS: Admitting Provider Social Worker; Responsible Provider Registered Nurse; Visit Provider Student in an Organized Health Care Education/Training Program | DX: I10 Essential (primary) hypertension (principal); M16.12 Unilateral primary osteoarthritis, left hip; J44.9 Chronic obstructive pulmonary disease, unspecified; K21.9 Gastro-esophageal reflux disease without esophagitis | CPT/HCPCS: 99222 ==

== ENCOUNTER → 2024-09-09 00:33 | Outpatient (BNV) | payer OTHER, SELFPAY | PROVIDERS: Admitting Provider Social Worker; Responsible Provider Registered Nurse; Visit Provider Registered Nurse | DX: F31.4 Bipolar disorder, current episode depressed, severe, without psychotic features (principal); F14.10 Cocaine abuse, uncomplicated; F11.90 Opioid use, unspecified, uncomplicated; F43.11 Post-traumatic stress disorder, acute | CPT/HCPCS: 90792; 99231; 99232; 99238 ==